=== PATIENT | female | born 1955 | race Asian ===

== ENCOUNTER 2018-01-04 19:15 | Emergency (ER) | payer SELFPAY ==
[~2018-01-04] VITALS: Ht 157.5 cm; Wt 68.2 kg
[2018-01-04] MEDS ORDERED: MORPHINE SULFATE 4 MG/ML SYRINGE IM ONE (19:45)
[2018-01-04] MEDS ORDERED: ONDANSETRON HCL 4 MG/2 ML VIAL IM ONE (19:45)
[2018-01-04 21:45] VITALS: BP 188/81
[2018-01-04] MEDS ORDERED: HYDROCODONE/ACETAMINOPHEN 5-325 MG TABLET PO ONE (22:00)
== END 2018-01-04 22:08 | disposition home or self-care (01) ==
LOC: EMS 19:17
DX: S82.841A Displaced bimalleolar fracture of right lower leg, initial encounter for closed fracture (principal); W01.0XXA Fall on same level from slipping, tripping and stumbling without subsequent striking against object, initial encounter; Y93.89 Activity, other specified; Y92.098 Other place in other non-institutional residence as the place of occurrence of the external cause; Y99.8 Other external cause status
CPT/HCPCS: 29515; 73590; 73610; 96372; 99283; J2270; J2405